=== PATIENT | female | born 1970 | race Hispanic/Latino ===

== ENCOUNTER 2020-05-01 15:36 | Emergency (ER) | payer BC, OTHER ==
[~2020-05-01] VITALS: Ht 149.9 cm; Wt 90.9 kg
--- NOTE | 2020-05-01 15:40 | Emergency Department Note ---
History of Present Illnes History of Present Illness Chief Complaint: Respiratory History of Present Illness This is a 50 year old female presents to the ED for itching of the nose follow ed by wheezing and JESSI . Arrival Mode: Car Onset (how long ago): day(s) (2) Radiation: Reports non-radiation Severity: moderate Onset quality: gradual Duration (how long): day(s) Timing of current episode: constant Progression: worsening Chronicity: new Context: Reports recent illness Relieving factors: none Exacerbating factors: none Associated symptoms: Reports cough Treatments prior to arrival: none Past Medical/Family History Physician Review I have reviewed the patient's past medical and family history. Any updates have been documented here. Past Medical History Recent Fever: No Clinical Suspicion of Infectio: No New/Unexplained Change in Ment: No Other Medical History: asthma Social History Smoking Cessation: Never Smoker Alcohol Use: None Any Illegal Drug Use: No Review of Systems Review of Systems Constitutional: Reports no symptoms EENTM: Reports no symptoms Cardiovascular: Reports no symptoms Respiratory: Reports wheezing Gastrointestinal: Reports no symptoms Genitourinary: Reports no symptoms Musculoskeletal: Reports no symptoms Integumentary: Reports no symptoms Neurological: Reports no symptoms Psychological: Reports no symptoms Endocrine: Reports no symptoms Hematological/Lymphatic: Reports no symptoms Physical Exam Related Data Allergies: Coded Allergies: No Known Allergies (Unverified , 05/01/20) Vital signs reviewed: Yes Physical Exam CONSTITUTIONAL Constitutional: Present well-developed, Present well-nourished HENT HENT: Present normocephalic, Present atraumatic, Present oropharynx clear/moist, Present nose normal HENT L/R: Present left ext ear normal, Present right ext ear normal EYES Eyes: Reports PERRL, Reports conjunctivae normal NECK Neck: Present ROM normal PULMONARY Pulmonary: Present effort normal, Present other (b/l expiratory wheezing) CARDIOVASCULAR Cardiovascular: Present regular rhythm, Present heart sounds normal, Present capillary refill normal, Present normal rate GASTROINTESTINAL Abdominal: Present soft, Present nontender, Present bowel sounds normal GENITOURINARY Genitourinary: Present exam deferred SKIN Skin: Present warm, Present dry MUSCULOSKELETAL Musculoskeletal: Present ROM normal NEUROLOGICAL Neurological: Present alert, Present oriented x 3, Present no gross motor or sensory deficits PSYCHOLOGICAL Psychological: Present mood/affect normal, Present judgement normal Results Imaging Imaging results reviewed: Yes Impressions [facility] [address] Patient Name: GABRIELE LANGLEY MR #: [id number] : 1970 Age/Sex: 50/F Req #: [id number] [facility] Physician: Ordered by: MEETA VELA DO Report #: [id number] Location: [facility] Room/Bed: Procedure: [id number] HOPD/CXR 2 VIEW - HOPD Exam Date: 05/01/20 Exam Time: 1632 REPORT STATUS: Signed EXAMINATION: CXR 2 VIEW - HOPD INDICATION: Wheezing COMPARISON: None FINDINGS: LINES/TUBES:None LUNGS:The lungs are well-inflated. No focal consolidation or pulmonary edema. PLEURA:No pleural effusion or pneumothorax. MEDIASTINUM:The cardiomediastinal silhouette appears normal in size and shape. BONES/SOFT TISSUES:No acute osseous injury. ABDOMEN:No free air under the diaphragm. IMPRESSION: No focal pneumonia or pulmonary edema. Signed by: Jimmie Vickers MD on 05/01/2020 4:36 PM Dictated By: JIMMIE VICKERS MD 35 Transcribed By: ALESSANDRA on 05/01/20 1636 COPY TO: MEETA VELA DO~ Assessment & Plan Medical Decision Making MDM Diff Dx : asthma, PNA, Sepsis, URI, COVID-19 URI Reassessment Reassessment marked improvement in WOB and lung sounds Assessment & Plan Final Impression: (1) Asthma (2) Elevated blood pressure reading Home Meds Reported Medications Cephalexin Monohydrate (KEFLEX) 500 Mg Capsule 05/01/20 Lisinopril (LISINOPRIL) 10 Mg Tablet, 20 MG PO DAILY, #30 TAB 05/01/20 Budesonide/Formoterol Fumarate (SYMBICORT 160-4.5 MCG INHALER) 10.2 Gm Hfa.aer.ad, 0 INH BID, INH 2 PUFFS 05/01/20 Albuterol Sulfate (PROVENTIL HFA) 6.7 Gm Hfa.aer.ad, 2 INH INH Q4HR PRN for SHORTNESS OF BREATH, INH 05/01/20 MEETA VELA DO May 01, 2020 15:40
[2020-05-01] MEDS ORDERED: PREDNISONE 20 MG TAB PO ONE (15:44)
[2020-05-01] MEDS ORDERED: ALBUTEROL/IPRATROPIUM 3 ML NEB NEB STA (15:44)
[2020-05-01] MEDS ORDERED: SYMBICORT 16010.2 GM INH (15:48)
[2020-05-01] MEDS ORDERED: LISINOPRIL10 MG PO (15:48)
[2020-05-01] MEDS ORDERED: KEFLEX500 MG (15:48)
[2020-05-01] MEDS ORDERED: PROVENTIL HFA6.7 GM INH (15:48)
[2020-05-01] MEDS ORDERED: PREDNISONE 20 MG TAB ONE (15:57)
[2020-05-01] MEDS ORDERED: ALBUTEROL/IPRATROPIUM 3 ML NEB ONE ×3 (15:58→16:35)
[2020-05-01] MEDS ORDERED: ALBUTEROL/IPRATROPIUM 3 ML NEB NEB ONE ×2 (16:08→16:15)
--- OUTSIDE RECORDS SUMMARY | 2020-05-01 16:26 | XMS REPORT | Clinical Summary ---
Demographics Preferred Language Unknown Marital Status Unknown L[employer] Day Affiliation Unknown Race Unknown Ethnic Group Unknown Author Author [facility] Address Unknown Phone Unavailable Care Team Providers Care Book Retailer Name Role Phone PCP Unavailable Allergies Not on File Medications Not on file Active Problems Not on file Social History Date Tobacco Use Types Packs/Day Years Used Never Assessed Sex Assigned at Date Recorded Not on file Last Filed Vital Signs Not on file Plan of Treatment Not on file Results Not on fileafter 05/01/2019
--- OUTSIDE RECORDS SUMMARY | 2020-05-01 16:26 | XMS REPORT | Continuity of Care Document ---
Author Author [facility] t Organization [facility] Address [address] [place] [id number] Phone Unavailable Care Team Providers Care Maintenance Shop Technician Name Role Phone Unavailable Unavailable Payers Payer Name Policy Type Policy Number Effective Date Expiration Date S ource Problems Condition Name Condition Details Condition Category Status Onset Date Resolution Date Last Treatment Date Treating Clinician Comments Source Encounter for screening mammogram for breast cancer Encounter for screening mammogram for breast cancer Active Problem 04/28/2020 Enayet Rahim Problem Active 2020-04-28 05:10:04 Angelic Wei HTN (hypertension) HTN (hypertension) Active Problem 04/28/2020 Enayet Rahim Problem Active 2020-04-28 05:10:04 Angelic Wei BMI 37.0-37.9, adult BMI 37.0-37.9, adult Active Problem 04/28/2020 Enayet Rahim Problem Active 2020-04-28 05:10:04 Angelic Wei Microcytic anemia Micr ocytic anemia Active Problem 04/28/2020 Enayet Rahim Problem Active 2020-04-28 05:10:04 Angelic Wei Daytime somnolence Dayt bethanie somnolence Active Problem 04/28/2020 Enayet Rahim Problem Active 2020-04-28 05:10:04 Angelic Wei Vitamin D deficiency Kelly min D deficiency Active Problem 04/28/2020 Enayet Rahim Problem Active 2020-04-28 05:10:04 Angelic Wei Fatigue Fati pamela Active Problem 04/28/2020 Enayet Rahim Problem Active 2020-04-28 05:10:04 Angelic Wei Iron deficiency anemia secondary to inadequate dietary iron intake Iron deficiency anemia secondary to inadequate dietary iron intake Active Problem 04/28/2020 Enayet Rahim Problem Active 2020-04-28 05:1 [facility] Adrenal adenoma Adre nal adenoma Active Problem 04/28/2020 Enayet Rahim Problem Active 2020-04-28 05:10:04 [facility] H/O hernia repair H/O hernia repair Active Problem 04/28/2020 Enayet Rahim Problem Active 2020-04-28 05:10:04 [facility] Elevated fasting blood sugar E levated fasting blood sugar Active Problem 04/28/2020 Enayet Rahim Problem Active 2020-04-28 05:10:04 [facility] Ovarian cyst Ovar latasha cyst Active Problem 04/28/2020 Enayet Rahim Problem Active 2020-04-28 05:10:[facility] Acute cystitis without hematuria Acute cystitis without hematuria Active Diagnosis 07/04/2017 Enayet Rahim Diagnosis Active 2017-07-04 05:10:53 [facility] Prediabetes Pred iabetes Active Diagnosis 07/04/2017 Enayet Rahim Diagnosis Active 2017-07-04 05:10:53 [facility] Seasonal allergies Seas onal allergies Active Problem 04/28/2020 Enayet Rahim Problem Active 2020-04-28 05:10:04 Angelic Wei Stress incontinence (female) (male) Stress incontinence (female) (male) Active Problem 04/28/2020 Enayet Rahim Problem Active 2020-04-28 05:10:04 [facility] Obesity (BMI 30-39.9) Obes ity (BMI 30-39.9) Active Problem 04/28/2020 Enayet Rahim Problem Active 2020-04-28 05:10:04 [facility] Needs flu shot Need s flu shot Active Diagnosis 07/03/2018 Enayet Rahim Diagnosis Active 2018-07-03 05:10:36 Angelic Wei Snoring Snor ing Active Diagnosis 03/02/2018 Enayet Rahim Diagnosis Active 2018-03-02 04:10:45 Angelic Wei Left hip pain Left hip pain Active Diagnosis 11/02/2017 Enayet Rahim Diagnosis Active 2017-11-02 04:11:06 [facility] BMI 39.0-39.9,adult BMI 39.0-39.9,adult Active Problem 04/28/2020 Enayet Rahim Problem Active 2020-04-28 05:10:04 Angelic Wei Moderate persistent asthma with acute exacerbation Moderate persistent asthma with acute exacerbation Active Problem 04/28/2020 Enayet Rahim Problem Active 2020-04-28 05:10:04 [facility] Carpal tunnel syndrome of left wrist Carpal tunnel syndrome of left wrist Active Problem 04/28/2020 Enayet Rahim Problem Active 2020-04-28 05:10:04 [facility] [place] BMI 38.0-38.9,adult BMI 38.0-38.9,adult Active Problem 04/28/2020 Enayet Rahim Problem Active 2020-04-28 05:10:04 Angelic Wei GERD without esophagitis GERD without esophagitis Active Problem 04/28/2020 Enayet Rahim Problem Active 2020-04-28 05:1 0:04 Angelic Wei Pain in right foot Pain in right foot Active Diagnosis 09/18/2018 Enayet Rahim Diagnosis Active 2018-09-18 04:11:05 [facility] Pain of left foot Pain of left foot Active Diagnosis 09/18/2018 Enayet Rahim Diagnosis Active 2018-09-18 04:11:05 Angelic Wei PV (pityriasis versicolor) PV (pityriasis versicolor) Active Diagnosis 12/19/2018 Enayet Rahim Diagnosis Active 2018-12-19 04:10:37 [facility] Acute tracheobronchitis Acut e tracheobronchitis Active Diagnosis 09/05/2018 Enayet Rahim Diagnosis Active 2018-09-05 04 :11:14 [facility] [address] Mild persistent asthma without complication Mild persistent asthma without complication Active Problem 04/28/2020 Enayet Rahim Problem Active 2020-04-28 05:10:04 [facility] [address] Allergies, Adverse Reactions, Alerts Allergy Name Allergy Type Status Severity Reaction(s) Onset Date Inacti ve Date Treating Clinician Comments Source N.K.D.A. N.K.D.A. Active Info Not Available 2019-01-15 00:00:00 Angelic Wei No Known Allergies DA Active U 2016-11-15 00:00:00 [facility] Social History Social Habit Start Date Stop Date Quantity Comments Source Sex Assigned At Lalo Hernandez TobaccoUse: 2016-05-13 00:00:00 2016-05-13 00:00:00 [facility] Medications Ordered Medication Name Filled Medication Name Start Date Stop Da te Current Medication? Ordering Clinician Indication Dosage Frequency Signature (SIG) Comments Components Source Lisinopril-Hydrochlorothiazide 2019-01-22 04:11:39 Yes Lauren Avila TAKE 1 TABLET BY MOUTH EVERY MORNING [facility] [place] Voltaren-XR 2019-01-22 04:11:39 Yes Behzad Margarita 1 tablet [facility] Pantoprazole Sodium 2019-01-22 04:11:39 Yes Behzad Margarita 1 tablet [facility] Montelukast Sodium 2019-01-22 04:11:39 Yes Behzad Margarita 1 tablet [facility] Albuterol Sulfate HFA 2019-01-22 04:11:39 Yes Behzad Sarw ar 2 puffs as needed [facility] Amlodipine Besylate 2018-12-19 04:10:37 Yes Behzad Margarita 1 tablet [facility] Dexilant 2018-12-19 04:10:37 Yes Behzad Margarita 1 c apsule [facility] Phentermine HCl 2018-12-19 04:10:37 Yes Behzad Margarita 1 tablet [facility] Ketoconazole 2018-12-13 00:00:00 Yes Behzad Margarita as directed [facility] PredniSONE 2018-12-13 00:00:00 Yes Behzad Margarita 1 tablet [facility] Symbicort 2018-12-13 00:00:00 Yes Behzad Margarita 2 puffs [facility] Pantoprazole Sodium 2018-09-10 00:00:00 Yes Behzad Margarita 1 tablet [facility] Guaifenesin AC 2018-08-28 00:00:00 Yes Behzad Margarita 5 ml [facility] Levaquin 2018-08-28 00:00:00 Yes Behzad Margarita 1 t ablet [facility] Loratadine 2018-06-28 00:00:00 Yes Behzad Margarita 1 tablet [facility] Fluticasone Propionate 2018-06-28 00:00:00 Yes Behzad Trinidad war 1 spray in each nostril [facility] Dexilant 2018-03-02 04:10:45 Yes Behzad Margarita 1 c [facility]psule [facility] Lisinopril 2017-11-02 04:11:06 Yes Behzad Margarita 1 tablet [facility] [place] Phentermine HCl 2017-11-02 04:11:06 Yes Behzad Margarita 1 capsule [facility] [address] Cyclobenzaprine HCl 2017-10-27 00:00:00 Yes Behzad Margarita 1 tablet as needed [facility] Nucynta ER 2017-07-04 05:10:53 Yes Behzad Margarita 1 tablet [facility] Duexis 2017-07-04 05:10:53 Yes Behzad Margarita 1 tab let [facility] [address] Ciprofloxacin HCl 2017-06-28 00:00:00 Yes Ebhzad Margarita 1 tablet [facility] [place] Nucynta ER 2016-05-18 05:13:13 Yes Behzad Margarita 1 tablet [facility] Rudyard 2016-05-18 05:13:13 Yes Behzad Margarita 1 tabl et as needed [facility] [place] Lisinopril 2016-05-18 05:13:13 Yes Behzad Margarita 1 tablet [facility] Amlodipine Besylate 2016-05-18 05:13:13 Yes Behzad Margarita 1 tablet [facility] Duexis 2016-05-18 05:13:13 Yes Behzad Margarita 1 tab let [facility] Vitamin D3 2016-05-13 00:00:00 Yes Behzad Margarita a s directed [facility] Vital Signs Vital Name Observation Time Observation Value Comments Source Weight 2019-01-15 15:15:00 [facility] [place] Height 2019-01-15 15:15:00 [facility] [place] Temperature Oral (F) 2019-01-15 15:15:00 97.8 F [facility] [place] Diastolic (mm Hg) 2019-01-15 15:15:00 [facility] [place] Systolic (mm Hg) 2019-01-15 15:15:00 [facility] [place] Weight 2018-12-13 21:45:00 [facility] Height 2018-12-13 21:45:00 [facility] [place] Temperature Oral (F) 2018-12-13 21:45:00 98.4 F [facility] Diastolic (mm Hg) 2018-12-13 21:45:00 [facility] [place] Systolic (mm Hg) 2018-12-13 21:45:00 [facility] [place] Weight 2018-09-10 19:30:00 [facility] Height 2018-09-10 19:30:00 [facility] Temperature Oral (F) 2018-09-10 19:30:00 98.1 F [facility] Diastolic (mm Hg) 2018-09-10 19:30:00 [facility] [place] Systolic (mm Hg) 2018-09-10 19:30:00 [facility] [place] Weight 2018-08-28 20:30:00 [facility] [place] Height 2018-08-28 20:30:00 [facility] Temperature Oral (F) 2018-08-28 20:30:00 98.5 F [facility] Diastolic (mm Hg) 2018-08-28 20:30:00 [facility] [place] Systolic (mm Hg) 2018-08-28 20:30:00 [facility] [place] Weight 2018-06-28 21:45:00 [facility] [place] Height 2018-06-28 21:45:00 [facility] [place] Temperature Oral (F) 2018-06-28 21:45:00 98.7 F [facility] Diastolic (mm Hg) 2018-06-28 21:45:00 [facility] [place] Systolic (mm Hg) 2018-06-28 21:45:00 [facility] [place] Weight 2018-02-22 20:00:00 [facility] [place] Height 2018-02-22 20:00:00 [facility] Temperature Oral (F) 2018-02-22 20:00:00 97.4 F [facility] [place] Diastolic (mm Hg) 2018-02-22 20:00:00 [facility] [place] Systolic (mm Hg) 2018-02-22 20:00:00 [facility] [place] Weight 2017-10-27 19:30:00 [facility] Height 2017-10-27 19:30:00 [facility] [place] Temperature Oral (F) 2017-10-27 19:30:00 97.8 F [facility] Diastolic (mm Hg) 2017-10-27 19:30:00 [facility] [place] Systolic (mm Hg) 2017-10-27 19:30:00 [facility] [place] Weight 2017-06-28 20:45:00 [facility] Height 2017-06-28 20:45:00 [facility] Temperature Oral (F) 2017-06-28 20:45:00 98.0 F [facility] Diastolic (mm Hg) 2017-06-28 20:45:00 [facility] [place] Systolic (mm Hg) 2017-06-28 20:45:00 [facility] [place] Weight 2016-05-13 16:45:00 [facility] Height 2016-05-13 16:45:00 [facility] [place] Temperature Oral (F) 2016-05-13 16:45:00 96.8 F [facility] [place] Diastolic (mm Hg) 2016-05-13 16:45:00 [facility] [place] Systolic (mm Hg) 2016-05-13 16:45:00 [facility] [place] Weight 2015-11-25 19:45:00 [facility] Height 2015-11-25 19:45:00 [facility] [place] Temperature Oral (F) 2015-11-25 19:45:00 97.2 F [facility] [place] Procedures This patient has no known procedures. Encounters Start Date/Time End Date/Time Encounter Type Admission Type [facility] Care Department Encounter ID Source 2020-04-27 10:07:00 2020-04-27 10:07:00 [facility] [place] [facility] [id number] [facility] 2019-01-15 10:15:00 2019-01-15 10:15:00 Outpatient [facility]patient [facility] [id number] [facility] 2018-12-13 16:45:00 2018-12-13 16:45:00 Outpatient Inpatient Prov[facility] [id number] [facility] 2018-09-10 14:30:00 2018-09-10 14:30:00 Outpatient Inpatient Providers [facility]patient [facility] [id number] [facility] 2018-08-28 15:30:00 2018-08-28 15:30:00 Outpatient Inpatient Providers [facility] Inpatient Prov[facility] [id number] [facility] 2018-07-04 11:30:00 2018-07-04 11:30:00 [facility]patient [facility] [place] [facility] [id number] [facility] 2018-06-28 15:45:00 2018-06-28 15:45:00 Outpatient Inpatient [facility]patient [facility] [id number] [facility] 2018-02-22 15:00:00 2018-02-22 15:00:00 Outpatient Inpatient Providers [facility] [id number] [facility] 2018-02-21 14:59:00 2018-02-21 14:59:00 Outpatient Inpatient Providers [facility] [id number] [facility] 2017-11-01 16:54:00 2017-11-01 16:54:00 Outpatient Inpatient Providers [facility] [id number] [facility] 2017-10-27 14:30:00 2017-10-27 14:30:00 Outpatient Inpatient Providers [facility] [id number] [facility] 2017-06-28 14:45:00 2017-06-28 14:45:00 Outpatient Inpatient [facility] [id number] [facility] 2016-05-13 10:45:00 2016-05-13 10:45:00 Outpatient Sandy Easley MD, [place] [address] [facility] 2015-11-25 14:45:00 2015-11-25 14:45:00 Outpatient Sandy Easley [place], [place] [id number] [employer] Results This patient has no known results.
--- OUTSIDE RECORDS SUMMARY | 2020-05-01 16:26 | XMS REPORT | Continuity of Care Document ---
Author Author [facility], [employer] Organization [facility] Address Unknown Phone Unavailable Care Team Providers Care Layout Inspector Name Role Phone [employer] Unavailable Un available Problems Problem Status Onset Date Classification Date Reported Comments Source Encounter for screening mammogram for breast cancer Active Problem 04/28/2020 Enayet Rahim HTN (hypertension) Active Problem 04/28/2020 Enayet Rahim BMI 37.0-37.9, adult Active Problem 04/28/2020 Enayet Rahim Microcytic anemia Active Problem 04/28/2020 Enayet Rahim Daytime somnolence Active Problem 04/28/2020 Enayet Rahim Vitamin D deficiency Active Problem 04/28/2020 Enayet Rahim Fatigue Active Problem 04/28/2020 Enayet Rahim Uncontrolled stage 2 hypertension Active Problem Enayet Rahim Iron deficiency anemia secondary to inad equate dietary iron intake Active Prob pascale 04/28/2020 Enayet Rahim Adrenal adenoma Active Problem 04/28/2020 Enayet Rahim H/O hernia repair Active Problem 04/28/2020 Enayet Rahim Elevated fasting blood sugar A ctive Problem Enayet Rahim Ovarian cyst Active Problem 04/28/2020 Enayet Rahim Acute cystitis without hematuria Active Diagnosis 0 07/04/2017 Enayet Rahim Prediabetes Active Diagnosis 07/04/2017 Enayet Rahim Seasonal allergies Active Problem 04/28/2020 Enayet Rahim Stress incontinence (female) (male) Active Problem Enayet Rahim Obesity (BMI 30-39.9) Active Problem 04/28/2020 Enayet Rahim Needs flu shot Active Diagnosis 07/03/2018 Enayet Rahim Snoring Active Diagnosis 03/02/2018 Enayet Rahim Left hip pain Active Diagnosis 11/02/2017 Enayet Rahim BMI 39.0-39.9,adult Active Problem 04/28/2020 Sandy Easley Moderate persistent asthma with acute exacerbation Active Problem 04/28/2020 Sandy Easley Carpal tunnel syndrome of left wrist Active Problem Sandy Easley BMI 38.0-38.9,adult Active Problem 04/28/2020 Sandy Easley GERD without esophagitis Active Problem 04/28/2020 Sandy Easley Pain in right foot Active Diagnosis 09/18/2018 Sandy Easley Pain of left foot Active Diagnosis 09/18/2018 Sandy Easley PV (pityriasis versicolor) Act katerine Diagnosis 0 12/19/2018 Sandy Easley Acute tracheobronchitis Active Diagnosis 09/05/2018 Sandy Easley Mild persistent asthma without complication Active Problem 04/28/2020 Sandy Easley Medications Medication Details Route Status Patient Instructions Ordering Provider Order Date Source Ketoconazole as directed Externally Active 2 % Externally daily [facility] 12/13/2018 Sandy Easley PredniSONE 1 tablet Orally Active 20 MG Orally Once a day [facility] 12/13/2018 Sandy Easley Symbicort 2 puffs Inhalation Active 80-4.5 MCG/ACT Inhalati on Twice a day [facility] 12/13/2018 Sandy Easley Pantoprazole Sodium 1 tablet Orally Active 40 MG Orally Once a day [facility] 09/10/2018 Sandy Easley Guaifenesin AC 5 ml Orally Active 100-10 MG/5ML Orally ti d [facility] 08/28/2018 Sandy Easley Levaquin 1 tablet Orally Active 500 MG Orally Once a da y [facility] 08/28/2018 Sandy Easley Loratadine 1 tablet Orally Active 10 MG Orally Once a day [facility] 06/28/2018 Sandy Easley Fluticasone Propionate 1 spray in each nostril Nasally Active 50 MCG/ACT Nasally Once a day [facility] 06/28/2018 Sandy Easley Cyclobenzaprine HCl 1 tablet a s needed Orally Active 10 MG Orally bid [facility] 10/27/2017 Sandy Easley Ciprofloxacin HCl 1 tablet Orally Active 500 mg Orally Twice a day [facility] 06/28/2017 Sandy Easley Vitamin D3 as directed Orally Active [id number] UNIT Orally q 7 d ays [facility] 05/13/2016 Sandy Ingram Amlodipine Besylate 1 tablet Orally Active 2.5 MG Orally Once a day [facility] Nucynta ER 1 tablet Orally Active 100 MG Orally every 12 hrs [facility] Lisinopril 1 tablet Orally Active 20 MG Orally Once a day [facility] Florencio Duexis 1 tablet Orally Active 800-26.6 MG Orally Thre e times a day [facility] Lisinopril-Hydrochlorothiazide TAKE 1 TABLET BY MOUTH EVERY MORNING NA Active 20-12.5 MG [facility] Voltaren-XR 1 tablet orally Active 75 orally BID as needed [facility] Carlos Dexilant 1 capsule Orally Active 30 MG Orally Once a day prn [facility] Dexilant 1 capsule Orally Active 30 MG Orally Once a day prn [facility] Phentermine HCl 1 capsule Orally Active 30 MG Orally Once a day [facility] Pantoprazole Sodium 1 tablet Orally Active 40 MG Orally Once a day [facility] Montelukast Sodium 1 tablet Orally Active 10 MG Orally Once a day [facility] Albuterol Sulfate HFA 2 puffs as needed Inhalation Active 108 (90 Base) MCG/ACT Inhalation every 6 hrs [facility] Phentermine HCl 1 tablet Orally Active 37.5 MG Orally Once a d [facility] Nucynta ER 1 tablet Orally Active 100 MG Orally every 12 hrs [facility] [place] 1 tablet as needed Orally Active 7.5-325 MG Orally every 6 hrs [facility] Lisinopril 1 tablet Orally Active 20 MG Orally Once a day [facility] Amlodipine Besylate 1 tablet Orally Active 2.5 MG Orally Once a day [facility] Duexis 1 tablet Orally Active 800-26.6 MG Orally Thre e times a day [facility] Allergies, Adverse Reactions, Alerts Substance Category Reaction Severity Reaction type Status Date Reported Comments Source N.K.D.A. Adverse Reaction Info Not Available Ad[facility] Immunizations Immunization Date Given Site Status Last Updated Comments Source 2018 Single Syringe Fluecelvax Quad 06/28/2018 completed Enayet Rahim Results No Data Provided for This Section Pathology Reports No Data Provided for This Section Diagnostic Reports No Data Provided for This Section Consultation Notes No Data Provided for This Section Discharge Summaries No Data Provided for This Section History and Physicals No Data Provided for This Section Vital Signs Vital Sign Value Date Comments Source Weight 203 01/15/2019 Enayet Rahim Height 60 0 01/15/2019 Enayet Rahim Temperature Oral (F) 97.8 F 01/15/2019 Enayet Rahim Diastolic (mm Hg) 94 01/15/2019 Enayet Rahim Systolic (mm Hg) 158 01/15/2019 Enayet Rahim Weight 200 12/13/2018 Enayet Rahim Height 60 0 12/13/2018 Enayet Rahim Temperature Oral (F) 98.4 F 12/13/2018 Enayet Rahim Diastolic (mm Hg) 93 12/13/2018 Enayet Rahim Systolic (mm Hg) 152 12/13/2018 Enayet Rahim Weight 195 09/10/2018 Enayet Rahim Height 60 0 09/10/2018 Enayet Rahim Temperature Oral (F) 98.1 F 09/10/2018 Enayet Rahim Diastolic (mm Hg) 84 09/10/2018 Enayet Rahim Systolic (mm Hg) 128 09/10/2018 Enayet Rahim Weight 194 08/28/2018 Enayet Rahim Height 60 0 08/28/2018 Enayet Rahim Temperature Oral (F) 98.5 F 08/28/2018 Enayet Rahim Diastolic (mm Hg) 105 08/28/2018 Enayet Rahim Systolic (mm Hg) 152 08/28/2018 Enayet Rahim Weight 194 06/28/2018 Enayet Rahim Height 60 0 06/28/2018 Enayet Rahim Temperature Oral (F) 98.7 F 06/28/2018 Enayet Rahim Diastolic (mm Hg) 100 06/28/2018 Enayet Rahim Systolic (mm Hg) 130 06/28/2018 Enayet Rahim Weight 203 02/22/2018 Enayet Rahim Height 60 0 02/22/2018 Enayet Rahim Temperature Oral (F) 97.4 F 02/22/2018 Enayet Rahim Diastolic (mm Hg) 105 02/22/2018 Enayet Rahim Systolic (mm Hg) 171 02/22/2018 Enayet Rahim Weight 194 10/27/2017 Enayet Rahim Height 60 0 10/27/2017 Enayet Rahim Temperature Oral (F) 97.8 F 10/27/2017 Enayet Rahim Diastolic (mm Hg) 113 10/27/2017 Enayet Rahim Systolic (mm Hg) 147 10/27/2017 Enayet Rahim Weight 192 06/28/2017 Enayet Rahim Height 60 0 06/28/2017 Enayet Rahim Temperature Oral (F) 98.0 F 06/28/2017 Enayet Rahim Diastolic (mm Hg) 105 06/28/2017 Enayet Rahim Systolic (mm Hg) 166 06/28/2017 Enayet Rahim Weight 198 05/13/2016 Enayet Rahim Height 60 1 07/14/2015 Enayet Rahim Temperature Oral (F) 96.8 F 05/13/2016 Enayet Rahim Diastolic (mm Hg) 87 05/13/2016 Enayet Rahim Systolic (mm Hg) 126 05/13/2016 Enayet Rahim Weight 185.5 11/25/2015 Enayet Rahim Height 60 0 11/25/2015 Enayet Rahim Temperature Oral (F) 97.2 F 11/25/2015 Enayet Rahim Encounters Location Location Details Encounter Type Encounter Number Reason For Visit Attending Provider ADM Date DC Date Status Source Sandy Easley MD, PA NEW PT [id number] 11/25/19 16 11/25/2015 Sandy Easley MD, PA NEW PT [id number] 11/25/19 16 11/25/2015 Sandy Easley MD, PA wants labs, fatigue [id number] 05/13/20 16 05/13/2016 Sandy Easley Procedures No Data Provided for This Section Assessment and Plan No Data Provided for This Section Plan of Care No Data Provided for This Section Social History Social History Date Source Social History ElementQualifiersDate Rep orted Tobacco Use: . Are you a: Never Smoker May 13, 2016 Use of recreational / street drugs? . Answer: No May 13, 2016 Marital Status: . May 13, 2016 Caffeine intake? . Status: Yes, What type: Soft Drinks, Energy Drinks May 13, 2016 Do you exercise? . Answer: No May 13, 2016 Do you drink alcohol? . Do you drink alcohol? Yes May 13, 2016 05/13/2016 Sandy Easley Family History No Data Provided for This Section Advance Directives No Data Provided for This Section Functional Status No Data Provided for This Section
--- NOTE | 2020-05-01 16:40 | Diagnostic Imaging Report ---
EXAMINATION: CXR 2 VIEW - HOPD INDICATION: Wheezing COMPARISON: None FINDINGS: LINES/TUBES:None LUNGS:The lungs are well-inflated. No focal consolidation or pulmonary edema. PLEURA:No pleural effusion or pneumothorax. MEDIASTINUM:The cardiomediastinal silhouette appears normal in size and shape. BONES/SOFT TISSUES:No acute osseous injury. ABDOMEN:No free air under the diaphragm. IMPRESSION: No focal pneumonia or pulmonary edema. Signed by: Nura Vickers MD on 05/01/2020 4:36 PM
[2020-05-01 17:01] VITALS: BP 143/62
== END 2020-05-01 17:04 | disposition home or self-care (01) ==
LOC: FSED 15:44
DX: J45.909 Unspecified asthma, uncomplicated (principal); R03.0 Elevated blood-pressure reading, without diagnosis of hypertension
CPT/HCPCS: 71046; 99283; J7512

== ENCOUNTER 2020-05-15 17:50 | Emergency (ER) | payer OTHER ==
[~2020-05-15] VITALS: Ht 147.3 cm; Wt 92.3 kg
[~2020-05-15 17:50] MED LIST: KEFLEX500 MG; LISINOPRIL10 MG PO; PROVENTIL HFA6.7 GM INH; SYMBICORT 16010.2 GM INH
[2020-05-15] MEDS ORDERED: METHYLPREDNISOLONE SOD SUCC 125 MG/2ML VIAL IV ONE (18:30)
[2020-05-15] MEDS ORDERED: SODIUM CHLORIDE FLUSH 10 ML SYR INJ PRN (18:30)
[2020-05-15] MEDS ORDERED: ALBUTEROL/IPRATROPIUM 3 ML NEB NEB ONE (18:30)
[2020-05-15] MEDS ORDERED: SODIUM CHLORIDE 0.9% 1000ML 1,000 ML IV STA (18:36)
[2020-05-15] MEDS ORDERED: KETOROLAC TROMETHAMINE 30 MG/ML VIAL IV STA (18:38)
[2020-05-15] MEDS ORDERED: SODIUM CHLORIDE 0.9% 1000ML 1,000 ML ONE (19:04)
[2020-05-15] MEDS ORDERED: KETOROLAC TROMETHAMINE 30 MG/ML VIAL ONE (19:04)
[2020-05-15] MEDS ORDERED: METHYLPREDNISOLONE SOD SUCC 125 MG/2ML VIAL ONE (19:04)
[2020-05-15] MEDS ORDERED: SODIUM CHLORIDE 0.9% 50ML 50 ML ONE (20:09)
[2020-05-15] MEDS ORDERED: IOPAMIDOL 370 MG/ML 200 ML INFUS..BTL INJ ONE (20:10)
[2020-05-15] MEDS ORDERED: POTASSIUM CHLORIDE 20 MEQ TAB CR PO STA (21:47)
[2020-05-15] MEDS ORDERED: LEVOFLOXACIN 500 MG TAB PO ONE (22:30)
[2020-05-15] MEDS ORDERED: PREDNISONE20 MG PO (22:37)
[2020-05-15] MEDS ORDERED: PROAIR HFA INH8.5 GM PO (22:37)
[2020-05-15] MEDS ORDERED: LEVOFLOXACIN750 MG PO (22:37)
[2020-05-15] MEDS ORDERED: ALBUTEROL2.5 MG/3 M NEB (22:37)
[2020-05-15] MEDS ORDERED: LEVOFLOXACIN 500 MG TAB ONE (22:39)
[2020-05-15] MEDS ORDERED: POTASSIUM CHLORIDE 20 MEQ TAB CR PO ONE (22:39)
== END 2020-05-15 22:47 | disposition home or self-care (01) ==
LOC: FSED 18:34
DX: J45.901 Unspecified asthma with (acute) exacerbation (principal); J20.9 Acute bronchitis, unspecified; R09.1 Pleurisy; R05 Cough; R06.02 Shortness of breath; R94.31 Abnormal electrocardiogram [ECG] [EKG]; I10 Essential (primary) hypertension; E78.5 Hyperlipidemia, unspecified
CPT/HCPCS: 71260; 80053; 81025; 82553; 83880; 84484; 85025; 85379; 85610; 93005; 96374; 96375; 99284; J1885; J2930; J7030; Q9967

== ENCOUNTER 2020-09-25 19:32 | Emergency (ER) | payer OTHER ==
[~2020-09-25] VITALS: Ht 149.9 cm; Wt 92.1 kg
[~2020-09-25 19:32] MED LIST changes: +ALBUTEROL2.5 MG/3 M NEB; +LEVOFLOXACIN750 MG PO; +PREDNISONE20 MG PO; +PROAIR HFA INH8.5 GM PO
[2020-09-25] MEDS ORDERED: SODIUM CHLORIDE 0.9% 1000ML 1,000 ML IV STA (20:36)
[2020-09-25] MEDS ORDERED: FAMOTIDINE 20 MG/2 ML VIAL IV ONE ×2 (20:45→21:15)
[2020-09-25] MEDS ORDERED: ONDANSETRON HCL INJ 2MG/ML 2ML 2 MG/ML VIAL IV ONE (20:45)
[2020-09-25] MEDS ORDERED: KETOROLAC TROMETHAMINE 30 MG/ML VIAL IV ONE (20:45)
[2020-09-25] MEDS ORDERED: ONDANSETRON HCL INJ 2MG/ML 2ML 2 MG/ML VIAL ONE (21:15)
[2020-09-25] MEDS ORDERED: SODIUM CHLORIDE 0.9% 1000ML 1,000 ML ONE (21:15)
[2020-09-25] MEDS ORDERED: KETOROLAC TROMETHAMINE 30 MG/ML VIAL ONE (21:15)
[2020-09-25] MEDS ORDERED: ACETAMINOPHEN500 MG PO (23:10)
[2020-09-25] MEDS ORDERED: ULTRAM 50MG50 MG PO (23:10)
[2020-09-25 23:24] VITALS: BP 164/76
[2020-09-26] MEDS ORDERED: SODIUM CHLORIDE 0.9% 50ML 50 ML ONE (00:17)
[2020-09-26] MEDS ORDERED: IOPAMIDOL 370 MG/ML 200 ML INFUS..BTL INJ ONE (00:17)
== END 2020-09-25 23:24 | disposition home or self-care (01) ==
LOC: FSED 19:58
DX: R10.30 Lower abdominal pain, unspecified (principal); R10.2 Pelvic and perineal pain; R11.0 Nausea; I10 Essential (primary) hypertension; E78.5 Hyperlipidemia, unspecified; J45.909 Unspecified asthma, uncomplicated
CPT/HCPCS: 74177; 76856; 80053; 81003; 85025; 96374; 96375; 96376; 99284; J1885; J2405; J7030; 76857; Q9967

== ENCOUNTER 2021-02-01 20:50 | Emergency (ER) | payer OTHER ==
[~2021-02-01] VITALS: Ht 149.9 cm; Wt 94.3 kg
[~2021-02-01 20:50] MED LIST changes: +ACETAMINOPHEN500 MG PO; +ULTRAM 50MG50 MG PO
[2021-02-01] MEDS ORDERED: ALBUTEROL SULF 0.083% NEB SOLN 3 ML NEB NEB STA (21:01)
[2021-02-01] MEDS ORDERED: METHYLPREDNISOLONE SOD SUCC 125 MG/2ML VIAL IV ONE (21:15)
[2021-02-01] MEDS ORDERED: METHYLPREDNISOLONE SOD SUCC 125 MG/2ML VIAL ONE (21:17)
[2021-02-01] MEDS ORDERED: ZITHROMAX250 MG PO (22:03)
[2021-02-01] MEDS ORDERED: PREDNISONE20 MG PO (22:03)
[2021-02-01] MEDS ORDERED: TESSALON PERLE100 MG PO (22:05)
[2021-02-01 22:36] VITALS: BP 165/79
== END 2021-02-01 22:36 | disposition home or self-care (01) ==
LOC: FSED 20:59
DX: J45.901 Unspecified asthma with (acute) exacerbation (principal); I10 Essential (primary) hypertension
CPT/HCPCS: 71045; 99283; J2930

== ENCOUNTER 2022-06-26 11:36 | Emergency (ER) | payer OTHER ==
[~2022-06-26] VITALS: Ht 149.9 cm; Wt 90.0 kg
[~2022-06-26 11:36] MED LIST changes: +ATENOLOL50 MG PO; +CEFDINIR300 MG PO; +HYDROCHLOROTHIA25 MG PO; +TESSALON PERLE100 MG PO; +ZITHROMAX250 MG PO
[2022-06-26] MEDS ORDERED: ALBUTEROL SULF 0.083% NEB SOLN 3 ML NEB NEB STA (12:08)
[2022-06-26] MEDS ORDERED: METHYLPREDNISOLONE SOD SUCC 125 MG/2ML VIAL IV ONE (12:15)
[2022-06-26] MEDS ORDERED: METHYLPREDNISOLONE SOD SUCC 125 MG/2ML VIAL ONE (12:28)
[2022-06-26] MEDS ORDERED: ALBUTEROL SULF 0.083% NEB SOLN 3 ML NEB ONE (12:29)
[2022-06-26] MEDS ORDERED: BROMPHENIR-PSE118 ML PO (14:06)
[2022-06-26] MEDS ORDERED: PREDNISONE20 MG PO (14:06)
[2022-06-26] MEDS ORDERED: CEFDINIR300 MG PO (14:06)
[2022-06-26] MEDS ORDERED: POTASSIUM CHLORIDE 20 MEQ TAB CR PO STA (14:07)
[2022-06-26] MEDS ORDERED: POTASSIUM CHLORIDE 20 MEQ TAB CR PO ONE (14:22)
== END 2022-06-26 14:13 | disposition home or self-care (01) ==
LOC: FSED 11:44
DX: J20.9 Acute bronchitis, unspecified (principal); J45.901 Unspecified asthma with (acute) exacerbation; I10 Essential (primary) hypertension; Z79.899 Other long term (current) drug therapy
CPT/HCPCS: 71045; 80053; 85025; 96374; 99284; J2930

== ENCOUNTER 2022-11-25 21:27 | Emergency (ER) | payer OTHER ==
[~2022-11-25] VITALS: Ht 149.9 cm; Wt 90.7 kg
[~2022-11-25 21:27] MED LIST changes: +BROMPHENIR-PSE118 ML PO
[2022-11-25] MEDS ORDERED: IBUPROFEN 600 MG TAB ONE (22:10)
[2022-11-25] MEDS ORDERED: IBUPROFEN 600 MG TAB PO STA (22:11)
[2022-11-25 22:30] VITALS: O2SAT 99
[2022-11-25] MEDS ORDERED: PREDNISONE20 MG PO ×2 (23:42→23:56)
[2022-11-25] MEDS ORDERED: GABAPENTIN300 MG PO ×2 (23:44→23:56)
[2022-11-25] MEDS ORDERED: PREDNISONE 20 MG TAB ONE (23:44)
[2022-11-25] MEDS ORDERED: PREDNISONE 20 MG TAB PO ONE (23:45)
== END 2022-11-26 00:07 | disposition home or self-care (01) ==
LOC: FSED 21:36
DX: M79.641 Pain in right hand (principal); M19.041 Primary osteoarthritis, right hand; M77.8 Other enthesopathies, not elsewhere classified; I10 Essential (primary) hypertension; Z91.148 Patient's other noncompliance with medication regimen for other reason
CPT/HCPCS: 73140; 99283; J7512

== ENCOUNTER 2023-04-11 11:28 | Emergency (ER) | payer OTHER ==
[~2023-04-11] VITALS: Ht 149.9 cm; Wt 90.7 kg
[~2023-04-11 11:28] MED LIST changes: +GABAPENTIN300 MG PO
[2023-04-11 11:35] VITALS: O2SAT 98
[2023-04-11] MEDS ORDERED: METHYLPREDNISOLONE SOD SUCC 125 MG/2ML VIAL IM ONE (12:00)
[2023-04-11] MEDS ORDERED: FAMOTIDINE 20 MG TAB PO ONE (12:00)
[2023-04-11] MEDS ORDERED: FAMOTIDINE 20 MG TAB ONE (12:02)
[2023-04-11] MEDS ORDERED: PEPCID20 MG PO (12:11)
[2023-04-11] MEDS ORDERED: PREDNISONE20 MG PO (12:11)
[2023-04-11] MEDS ORDERED: PROVENTIL HFA6.7 GM INH (12:11)
[2023-04-11] MEDS ORDERED: BENADRYL25 M1 PO (12:11)
[2023-04-11] MEDS ORDERED: EPINEPHRIN0.3 MG/0.3 IM (12:11)
[2023-04-11] MEDS ORDERED: DEXAMETHASONE SOD PHOS INJ 4 MG/ML SDV ONE (12:12)
[2023-04-11] MEDS ORDERED: DEXAMETHASONE SOD PHOS INJ 4 MG/ML SDV IM ONE (12:15)
[2023-04-11] MEDS ORDERED: DEXAMETHASONE SOD PHOS INJ 4 MG/ML SDV IV ONE (12:15)
== END 2023-04-11 12:53 | disposition home or self-care (01) ==
LOC: FSED 11:34
DX: L50.9 Urticaria, unspecified (principal); T78.40XA Allergy, unspecified, initial encounter; I10 Essential (primary) hypertension; E78.5 Hyperlipidemia, unspecified; J45.909 Unspecified asthma, uncomplicated; E66.9 Obesity, unspecified; F41.9 Anxiety disorder, unspecified
CPT/HCPCS: 99282; J1100

== ENCOUNTER 2024-01-30 13:33 | Emergency (ER) | payer OTHER ==
[~2024-01-30] VITALS: Ht 149.9 cm; Wt 86.2 kg
[~2024-01-30 13:33] MED LIST changes: +AUGMENTIN 500-1 EACH PO; +BENADRYL25 M1 PO; +CIPRO500 MG PO; +EPINEPHRIN0.3 MG/0.3 IM; +FLAGYL375 MG PO; +LEVOFLOXACIN250 MG PO; +LOSARTAN-HCTZ1 EAC1 PO; +METRONIDAZOLE500 MG PO; +PANTOPRAZOLE SO40 MG PO; +PEPCID20 MG PO
[2024-01-30 13:45] VITALS: TEMP 98.3
[2024-01-30] MEDS ORDERED: IPRATROPIUM BROMIDE 0.02% 2.5 ML NEB ONE (14:04)
[2024-01-30] MEDS ORDERED: ALBUTEROL SULF 0.083% NEB SOLN 3 ML NEB ONE (14:04)
[2024-01-30 15:20] VITALS: PULSE 81; RESP 20
[2024-01-30] MEDS: IPRATROPIUM BROMIDE 0.02% 2.5 ML NEB NEB ONE (15:20)
[2024-01-30] MEDS: ALBUTEROL SULF 0.083% NEB SOLN 3 ML NEB NEB STA (15:20)
[2024-01-30 15:30] VITALS: PULSE 96; RESP 18; O2SAT 98
== END 2024-01-30 15:20 | disposition home or self-care (01) ==
LOC: FSED 13:40
DX: R06.02 Shortness of breath (principal); J45.901 Unspecified asthma with (acute) exacerbation; J20.9 Acute bronchitis, unspecified; R05.9 Cough, unspecified; I10 Essential (primary) hypertension; E66.9 Obesity, unspecified
CPT/HCPCS: 99283

== ENCOUNTER → 2024-04-19 | Outpatient (REF) | payer OTHER | LOC: US 08:48 | PROVIDERS: ATTEND Nurse Practitioner | DX: K76.0 Fatty (change of) liver, not elsewhere classified (principal) | CPT/HCPCS: 76700 ==

== ENCOUNTER 2024-06-02 20:54 | Emergency (ER) | payer OTHER ==
[~2024-06-02] VITALS: Ht 149.9 cm; Wt 76.2 kg
[2024-06-02 21:00] VITALS: PULSE 98; RESP 22; TEMP 99.8
[2024-06-02] MEDS: PREDNISONE 20 MG TAB PO ONE (21:25)
[2024-06-02] MEDS: ALBUTEROL/IPRATROPIUM 3 ML NEB NEB ONE ×2 (21:25→21:26)
[2024-06-02] MEDS ORDERED: AZITHROMYCIN250 MG PO (22:16)
[2024-06-02] MEDS ORDERED: BENZONATATE100 MG PO (22:16)
[2024-06-02] MEDS ORDERED: PREDNISONE50 MG PO (22:16)
[2024-06-02 23:00] VITALS: BP 161/91; PULSE 97; RESP 24; TEMP 99.8; O2SAT 99
== END 2024-06-02 23:00 | disposition home or self-care (01) ==
LOC: FSED 21:04
DX: R06.00 Dyspnea, unspecified (principal); J45.901 Unspecified asthma with (acute) exacerbation; J20.9 Acute bronchitis, unspecified; I10 Essential (primary) hypertension; E66.9 Obesity, unspecified
CPT/HCPCS: 0223U; 71046; 87400; 99283; J7512

== ENCOUNTER 2024-09-06 14:45 | Emergency (ER) | payer OTHER ==
[~2024-09-06] VITALS: Ht 149.9 cm; Wt 77.3 kg
[~2024-09-06 14:45] MED LIST changes: +AZITHROMYCIN250 MG PO; +BENZONATATE100 MG PO; +PREDNISONE50 MG PO
[2024-09-06] MEDS ORDERED: OZEMPIC0.25 MG/02 (14:58)
[2024-09-06] MEDS: SODIUM CHLORIDE 0.9% 1000ML 1,000 ML IV ONE (15:06)
[2024-09-06] MEDS: ONDANSETRON HCL INJ 2MG/ML 2ML 2 MG/ML VIAL IV STA (15:06)
[2024-09-06] MEDS ORDERED: ONDANSETRON ODT4 MG PO (15:46)
[2024-09-06 15:54] VITALS: PULSE 75; RESP 16; TEMP 98.2
[2024-09-06 16:21] VITALS: BP 146/72; PULSE 75; RESP 16; O2SAT 97
== END 2024-09-06 16:20 | disposition home or self-care (01) ==
LOC: FSED 14:48
DX: R11.2 Nausea with vomiting, unspecified (principal); E86.0 Dehydration; E86.1 Hypovolemia; T38.3X5A Adverse effect of insulin and oral hypoglycemic [antidiabetic] drugs, initial encounter; I10 Essential (primary) hypertension; J45.909 Unspecified asthma, uncomplicated; K21.9 Gastro-esophageal reflux disease without esophagitis; E66.9 Obesity, unspecified
CPT/HCPCS: 80048; 80076; 85025; 96374; 99283; J2405; J7030

== ENCOUNTER 2025-01-08 21:12 | Emergency (ER) | payer OTHER ==
[~2025-01-08] VITALS: Ht 149.9 cm; Wt 83.0 kg
[~2025-01-08 21:12] MED LIST changes: +ONDANSETRON ODT4 MG PO; +OZEMPIC0.25 MG/02
[2025-01-08 21:30] VITALS: PULSE 73; RESP 17; TEMP 98.2; O2SAT 97
[2025-01-08] MEDS ORDERED: IOPAMIDOL 370 MG/ML 100 ML INFUS..BTL INJ ONE (23:50)
[2025-01-09] MEDS: ONDANSETRON HCL INJ 2MG/ML 2ML 2 MG/ML VIAL IV STA (00:37)
[2025-01-09] MEDS: KETOROLAC TROMETHAMINE 30 MG/ML VIAL IV STA (00:38)
[2025-01-09] MEDS: SODIUM CHLORIDE 0.9% 1000ML 1,000 ML IV ONE (02:43)
[2025-01-09 03:30] VITALS: BP 134/66; PULSE 80; RESP 17; TEMP 97.8
== END 2025-01-09 02:39 | disposition home or self-care (01) ==
LOC: FSED 22:56
DX: R10.32 Left lower quadrant pain (principal); R19.7 Diarrhea, unspecified; M54.50 Low back pain, unspecified; I10 Essential (primary) hypertension; J45.909 Unspecified asthma, uncomplicated; K21.9 Gastro-esophageal reflux disease without esophagitis; E66.9 Obesity, unspecified
CPT/HCPCS: 74177; 99284; J1885; J2405; J7030; Q9967

== ENCOUNTER 2025-01-23 14:03 | Emergency (ER) | payer OTHER ==
[~2025-01-23] VITALS: Ht 149.9 cm; Wt 82.8 kg
[2025-01-23 14:20] VITALS: PULSE 93; RESP 20; TEMP 99.7; O2SAT 96
[2025-01-23] MEDS ORDERED: HYDRALAZINE HCL 20 MG/ML VIAL IV STA (14:33)
== END 2025-01-23 17:10 | disposition home or self-care (01) ==
LOC: FSED 14:29
DX: R50.9 Fever, unspecified (principal); R10.32 Left lower quadrant pain; R42 Dizziness and giddiness; M79.18 Myalgia, other site; R51.9 Headache, unspecified; I10 Essential (primary) hypertension; J45.909 Unspecified asthma, uncomplicated; E66.9 Obesity, unspecified; K21.9 Gastro-esophageal reflux disease without esophagitis
CPT/HCPCS: 0223U; 80048; 83518; 87400; 99284